=== PATIENT | female | born 1990 | race Caucasian/White ===

== ENCOUNTER 2018-01-01 21:01 | Emergency (ER) | payer OTHER ==
[2018-01-01 21:41] LABS: Urine Blood TRACE (NEG); Urine Glucose NEGATIVE (NEG); Urine Protein NEGATIVE (NEG); Urine Specific Gravity >1.030 (1.005-1.030); Urine pH 5.5 (5.0-7.0)
[2018-01-01 21:56] LABS: Absolute Monocytes 0.6 K/uL (0.1-1.3); Absolute Neutrophil 7.6 K/uL (1.8-8.0); Basophils % 0.4 % (0-1.3); Hematocrit 41.3 % (36.0-45.0); Lymphocytes % 19.1 % (15.3-44.8); MCH 30.9 pg (27.0-35.0); MCV 90.8 fL (80-100); MPV 8.6 fL (7.6-11.3); Monocytes % 5.6 % (3.3-12.3); RBC Red Blood Cell Count 4.55 M/uL (3.86-4.86)
[2018-01-01 22:02] LABS: BUN Blood Urea Nitrogen 11 mg/dL (7-18); Bicarbonate 27 mmol/L (21-32); Glucose Level 109 mg/dL (74-106); Potassium 3.6 mmol/L (3.5-5.1); Sodium Level 138 mmol/L (136-145)
[2018-01-01] MEDS ORDERED: NA CHLORIDE 0.9% 500 ML ONE (22:43)
--- NOTE | 2018-01-01 23:40 | ER ---
Nurse's Notes [facility] Name: Denia Negrete Age: 27 yrs Sex: Female : 1990 Arrival Date: 01/01/2018 Time: 21:05 Bed 20 Private MD: Diagnosis: Chest pain. Bronchitis Presentation: 01/01 21:06 Presenting complaint: Patient states: She's been having a dry cough since Tuesday, and aj1 then that led to some intermittent chest pain and shortness of breath. Now she's feeling fatigued. Denies fever. Denies nasal congestion/discharge. Transition of care: patient was not received from another setting of care. Onset of symptoms was December 26, 2017. Risk Assessment: Do you want to hurt yourself or someone else? Patient reports no desire to harm self or others. Initial Sepsis Screen: Does the patient meet any 2 criteria? No. Patient's initial sepsis screen is negative. Does the patient have a suspected source of infection? No. Patient's initial sepsis screen is negative. Care prior to arrival: None. 21:06 Method Of Arrival: Ambulatory aj 21:06 Acuity: JUAN 4 aj1 Triage Assessment: 21:08 General: Appears in no apparent distress. uncomfortable, Behavior is calm, cooperative, aj1 appropriate for age. Pain: Denies pain. Neuro: Level of Consciousness is awake, alert, obeys commands. Cardiovascular: Reports chest pain, shortness of breath, Patient's skin is warm and dry. Respiratory: Reports shortness of breath Airway is patent Respiratory effort is even, unlabored, Respiratory pattern is regular, symmetrical. 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 - Social history:: Smoking status: Patient/guardian denies using tobacco. - Ebola Screening: : Patient denies travel to an Ebola-affected area in the 21 days before illness onset. Screenin:27 Abuse screen: Denies threats or abuse. Denies injuries from another. Nutritional lp1 screening: No deficits noted. Tuberculosis screening: No symptoms or risk factors identified. Fall Risk None identified. Assessment: 21:24 General: Appears in no apparent distress. Behavior is appropriate for age. Pain: lp1 Complains of pain in chest Pain does not radiate. Pain currently is 0 out of 10 on a pain scale. Quality of pain is described as aching, Pain began gradually, Is episodic, Aggravated by increased activity. Neuro: Level of Consciousness is awake, alert, obeys commands. Cardiovascular: Patient's skin is warm and dry. Respiratory: Reports shortness of breath cough that is dry, Airway is patent Respiratory effort is even, unlabored, Respiratory pattern is regular, Breath sounds are clear bilaterally. Onset: The symptoms/episode began/occurred gradually, the patient has mild shortness of breath. GI: No deficits noted. : No deficits noted. EENT: No deficits noted. Derm: Skin is pink, warm \\T\\ dry. Musculoskeletal: Circulation, motion, and sensation intact. 22:41 Reassessment: Patient returned from CT, states "I felt a weaker form of palpitations lp1 when they gave the the contrast"; Patient states feeling better now; aware of waiting for CT results. Vital Signs: 21:08 BP 169 / 94; Pulse 106; Resp 20; Temp 97.5(TE); Pulse Ox 100% on R/A; Weight 120.66 kg aj1 (R); Height 5 ft. 5 in. (165.10 cm) (R); Pain 0/10; 21:24 BP 139 / 63; Pulse 92; Resp 18; Pulse Ox 100% on R/A; lp1 22:39 BP 133 / 83; Pulse 96; Resp 18; Pulse Ox 99% on R/A; lp1 23:50 BP 125 / 61; Pulse 91; Resp 18; Pulse Ox 100% on R/A; lp1 21:08 Body Mass Index 44.26 (120.66 kg, 165.10 cm) aj1 ED Course: 21:05 Patient arrived in ED. al2 21:08 Triage completed. aj1 21:08 Arm band placed on Patient placed in an exam room. aj1 21:10 Julio Cesar Moreno MD is Attending Physician. pkl 21:11 Karina Maya RN is Primary Nurse. lp1 21:24 Patient maintains SpO2 saturation greater than 95% on room air. lp1 21:26 Patient has correct armband on for positive identification. Pulse ox on. NIBP on. lp1 21:38 Inserted saline lock: 22 gauge in right antecubital area, using aseptic technique. lp1 Blood collected. 22:23 X-ray completed. Portable x-ray completed in exam room. Patient tolerated procedure az well. 22:25 XRAY CXR (1 view) In Process Unspecified. EDMS 22:[address] via wheelchair. cw1 22:40 CT Chest For PE Angio In Process Unspecified. EDMS 22:42 No provider procedures requiring assistance completed. lp1 23:50 IV discontinued, No redness/swelling at site. Pressure dressing applied. lp1 Administered Medications: 22:41 Drug: NS 0.9% 500 ml Route: IV; Rate: bolus; Site: right antecubital; lp1 23:30 Follow up: IV Status: Completed infusion; IV Intake: 500ml lp1 Intake: 23:30 IV: 500ml; Total: 500ml. lp1 Outcome: 23:39 Discharge ordered by . pkl 23:50 Discharged to home ambulatory, with significant other. lp1 23:50 Condition: good 23:50 Discharge instructions given to patient, Instructed on discharge instructions, follow up and referral plans. medication usage, Demonstrated understanding of instructions, follow-up care, medications, Prescriptions given X 1. 23:51 Patient left the ED. lp1 Signatures: Dispatcher [employer] Jess Herrera, ALFRED RN Julio Cesar Lee MD MD pkl Woodley, Crystal cw1 Karina Maya RN RN lp1 Megan Wharton Araceli az
--- NOTE | 2018-01-01 23:40 | EDPHYS ---
Physician Documentation [facility] Name: Denia Negrete Age: 27 yrs Sex: Female : 1990 Arrival Date: 01/01/2018 Time: 21:05 Bed 20 Private MD: ED Physician Julio Cesar Moreno HPI: 01/01 21:26 This 27 yrs old Female presents to ER via Ambulatory with complaints of Chest pkl Pain, Cough. 21:26 The patient or guardian reports chest pain that is located primarily in the substernal pkl area. The pain does not radiate. Associated signs and symptoms: Pertinent positives: cough, shortness of breath. The chest pain is described as dull. Patient said symptoms started 1 week ago. 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 - Social history:: Smoking status: Patient/guardian denies using tobacco. - Ebola Screening: : Patient denies travel to an Ebola-affected area in the 21 days before illness onset. ROS: 21:26 Eyes: Negative for injury, pain, redness, and discharge, ENT: Negative for injury, pkl pain, and discharge, Neck: Negative for injury, pain, and swelling. 21:26 Cardiovascular: Positive for chest pain. 21:26 Respiratory: Positive for cough, with no reported sputum, shortness of breath. 21:26 Abdomen/GI: Negative for abdominal pain, nausea, vomiting, and diarrhea. 21:26 Back: Negative for acute changes. 21:26 : Negative for urinary symptoms. 21:26 MS/extremity: Negative for acute changes. 21:26 Skin: Negative for rash. 21:26 Neuro: Negative for altered mental status. Exam: 21:26 Head/Face: Normocephalic, atraumatic. Eyes: Pupils equal round and reactive to light, pkl extra-ocular motions intact. Lids and lashes normal. Conjunctiva and sclera are non-icteric and not injected. Cornea within normal limits. Periorbital areas with no swelling, redness, or edema. ENT: Nares patent. No nasal discharge, no septal abnormalities noted. Tympanic membranes are normal and external auditory canals are clear. Oropharynx with no redness, swelling, or masses, exudates, or evidence of obstruction, uvula midline. Mucous membranes moist. Neck: Trachea midline, no thyromegaly or masses palpated, and no cervical lymphadenopathy. Supple, full range of motion without nuchal rigidity, or vertebral point tenderness. No Meningismus. Chest/axilla: Normal chest wall appearance and motion. Nontender with no deformity. No lesions are appreciated. Cardiovascular: Regular rate and rhythm with a normal S1 and S2. No gallops, murmurs, or rubs. Normal PMI, no JVD. No pulse deficits. Respiratory: Lungs have equal breath sounds bilaterally, clear to auscultation and percussion. No rales, rhonchi or wheezes noted. No increased work of breathing, no retractions or nasal flaring. Abdomen/GI: Soft, non-tender, with normal bowel sounds. No distension or tympany. No guarding or rebound. No evidence of tenderness throughout. Back: No spinal tenderness. No costovertebral tenderness. Full range of motion. Skin: Warm, dry with normal turgor. Normal color with no rashes, no lesions, and no evidence of cellulitis. MS/ Extremity: Pulses equal, no cyanosis. Neurovascular intact. Full, normal range of motion. Neuro: Awake and alert, GCS 15, oriented to person, place, time, and situation. Cranial nerves II-XII grossly intact. Motor strength 5/5 in all extremities. Sensory grossly intact. Cerebellar exam normal. Normal gait. Vital Signs: 21:08 BP 169 / 94; Pulse 106; Resp 20; Temp 97.5(TE); Pulse Ox 100% on R/A; Weight 120.66 kg aj1 (R); Height 5 ft. 5 in. (165.10 cm) (R); Pain 0/10; 21:24 BP 139 / 63; Pulse 92; Resp 18; Pulse Ox 100% on R/A; lp1 22:39 BP 133 / 83; Pulse 96; Resp 18; Pulse Ox 99% on R/A; lp1 23:50 BP 125 / 61; Pulse 91; Resp 18; Pulse Ox 100% on R/A; lp1 21:08 Body Mass Index 44.26 (120.66 kg, 165.10 cm) aj1 MDM: 21:10 Patient medically screened. pkl 23:38 Data reviewed: vital signs, nurses notes, lab test result(s), radiologic studies, CT pkl scan, plain films. 01/01 21:24 Order name: CBC with Diff; Complete Time: 22:05 pkl 01/01 21:24 Order name: Chem 7; Complete Time: 22:05 pkl 01/01 21:24 Order name: D-Dimer; Complete Time: 22:05 pkl 01/01 21:24 Order name: XRAY CXR (1 view) pkl 01/01 21:38 Order name: Urine Dipstick--Ancillary (enter results); Complete Time: 22:05 mw2 01/01 21:38 Order name: Urine --Ancillary (enter results); Complete Time: 22:05 mw2 01/01 21:24 Order name: EKG; Complete Time: 21:24 pkl 01/01 21:27 Order name: EKG - Nurse/Tech; Complete Time: 21:40 lp1 01/01 21:38 Order name: Urine Test (obtain specimen); Complete Time: 21:40 mw2 01/01 22:07 Order name: CT Chest For PE Angio pkl Administered Medications: 22:41 Drug: NS 0.9% 500 ml Route: IV; Rate: bolus; Site: right antecubital; lp1 23:30 Follow up: IV Status: Completed infusion; IV Intake: 500ml lp1 Disposition: 01/01/18 23:39 Discharged to Home. Impression: Chest pain. Bronchitis. - Condition is Stable. - Prescriptions for Guaifenesin AC 10- 100 mg/5 mL Oral Liquid - take 10 milliliters by ORAL route every 8 hours As needed; 120 milliliter. - Medication Reconciliation Form, Thank You Letter, Antibiotic Education, Prescription Opioid Use form. - Follow up: Private Physician; When: 2 - 3 days; Reason: Re-evaluation by your physician. - Problem is new. - Symptoms have improved. Signatures: Dispatcher [employer] EDJess Madrid RN RN aj1 Julio Cesar Moreno MD MD pkl Karina Maya RN RN lp1 Tuan Mitchell mw2 Corrections: (The following items were deleted from the chart) 23:51 23:39 01/01/2018 23:39 Discharged to Home. Impression: Chest pain. Bronchitis. lp1 Condition is Stable. Forms are Medication Reconciliation Form, Thank You Letter, Antibiotic Education, Prescription Opioid Use. Follow up: Private Physician; When: 2 - 3 days; Reason: Re-evaluation by your physician. Problem is new. Symptoms have improved. pkl
--- NOTE | 2018-01-02 07:01 | EKG ---
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
--- NOTE | 2018-01-02 08:17 | RAD REPORT ---
EXAM DESCRIPTION: RAD - Chest Single View - 01/01/2018 10:24 pm CLINICAL HISTORY: Persistent dry cough COMPARISON: None. TECHNIQUE: AP portable chest image was obtained 2146 hours . FINDINGS: Lungs are clear. Heart size is accentuated by body habitus, portable technique and a sligh tly shallow inspiratory effort. No failure or volume overload. No measurable pleural effusion and no pneumothorax. No gross bony abnormality seen. No acute aortic findings suspected. IMPRESSION: No acute cardiopulmonary process.
--- NOTE | 2018-01-02 08:25 | RAD REPORT ---
EXAM DESCRIPTION: CT - Chest For Pe Angio - 01/01/2018 10:40 pm CLINICAL HISTORY: Persistent cough, chest pain, shortness of breath A preliminary report was provided at the time of the study and reviewed prior to final report. COMPARISON: Chest films same date TECHNIQUE: Dynamically enhanced 3 mm thick images of the chest were obtained during administration o f approximately 150mL Isovue 370 IV contrast. Coronal and oblique MIP reconstruction images were gene rated and reviewed. Exam utilizes a protocol to evaluate the pulmonary arterial tree. All CT scans are performed using dose optimization technique as appropriate and may include automated exposure control or mA/KV adjustment according to patient size. FINDINGS: No pulmonary emboli are identified. The aorta as imaged shows no acute or suspicious finding. No pericardial thickening or effusion. No infiltrate or mass in the lung parenchyma. No pleural effusion or pleural thickening. No mediastinal or hilar suspicious masses. No chest wall masses or abnormal axillary lymphadenopathy. IMPRESSION: No pulmonary emboli identified. No other significant or suspicious findings.
== END 2018-01-01 23:51 | disposition home or self-care (01) ==
LOC: ER 21:01
DX: R07.9 Chest pain, unspecified (principal); J40 Bronchitis, not specified as acute or chronic
CPT/HCPCS: 36415; 71045; 71275; 80048; 81003; 81025; 85025; 85379; 93005; 96360; 99285; Q9967